=== PATIENT | female | born 1990 | race Caucasian/White ===

== ENCOUNTER 2017-10-09 19:55 | Emergency (ER) | payer BC ==
[2017-10-09] MEDS ORDERED: Ondansetron ODT 4 MG TAB ONE (20:10)
== END 2017-10-09 20:22 | disposition home or self-care (01) ==
LOC: NAV ERS 19:55
DX: A05.9 Bacterial foodborne intoxication, unspecified (principal)
CPT/HCPCS: 99283; Q0162

== ENCOUNTER 2019-01-10 20:46 | Emergency (ER) | payer BC ==
[2019-01-10 21:35] LABS: #Basophils 0.1 thou/uL (0.0-0.2); #Eosinphils 0.2 thou/uL (0.0-0.7); #Lymphocytes 2.2 thou/uL (1.20-3.40); #Monocytes 0.4 thou/uL (0.11-0.59); %Basophils 1.8 % (0.0-1.0); %Eosinophils 2.3 % (0.0-10.0); %Lymphocytes 31.9 % (21.0-51.0); %Monocytes 5.5 % (0.0-10.0); %Neutrophils 58.5 % (42.0-75.0); Hemoglobin 13.8 g/dL (12.0-16.0); Mean Corpuscular HGB CONC 32.6 g/dL (32.0-36.0); Mean Corpuscular Hemoglobin 28.5 pg (27.0-31.0); Mean Corpuscular Volume 87.6 fL (78.0-98.0); Mean Platelet Volume 9.8 fL (7.4-10.4); Platelet Count 225 thou/uL (130-400); RBC Distribution Width 12.2 % (11.5-14.5); Red Blood Cell (RBC) Count 4.83 mill/uL (4.20-5.40); White Blood Cell (WBC) Count 6.8 thou/uL (4.8-10.8)
[2019-01-10 21:43] LABS: BHCG - Serum Negative (NEGATIVE); Pregs Control Bar Appear? YES (CONTROL BAR)
== END 2019-01-10 21:52 | disposition home or self-care (01) ==
LOC: NAV ERS 20:46
DX: K62.5 Hemorrhage of anus and rectum (principal)
CPT/HCPCS: 82274; 84703; 85025; 99283